=== PATIENT | female | born 1955 | race Caucasian/White ===

== ENCOUNTER 2018-08-12 08:15 | Day surgery (SDC) | payer OTHER ==
[~2018-08-12 08:15] MED LIST: CAPOTEN50 MG; CIPROFLOXACIN500 MG; DICYCLOMINE HCL20 MG; INTESTINEX1 CA1 PO; LOTREL 10/40 MG1 CAP; PERCOCET 10-3251 TAB PO; POLY119PG PO; PRILOSEC20 MG; SURFAK240 M1 PO; VERAPAMIL ER100 MG
== END 2018-08-12 14:49 | disposition home or self-care (01) ==
LOC: AMB-ENDOS 08:15
DX: D12.0 Benign neoplasm of cecum (principal)

== ENCOUNTER 2021-07-16 09:00 | Outpatient (CLI) | payer OTHER | END 2021-07-16 09:30 | disposition home or self-care (01) | LOC: PPH VACUNA 09:00 | PROVIDERS: ATTEND Emergency Medicine Pediatric Emergency Medicine | DX: Z23 Encounter for immunization (principal) ==

== ENCOUNTER 2023-02-25 07:30 | Outpatient (CLI) | payer OTHER | END 2023-02-25 07:37 | disposition home or self-care (01) | LOC: LAB 07:30 | DX: K80.80 Other cholelithiasis without obstruction (principal) ==

== ENCOUNTER 2023-03-21 15:48 | Emergency (ER) | payer OTHER ==
[~2023-03-21] VITALS: Ht 152.4 cm; Wt 71.7 kg
== END 2023-03-21 20:15 | disposition home or self-care (01) ==
LOC: ER 15:48 → EMR PED 15:51 → ER 15:51
DX: K29.70 Gastritis, unspecified, without bleeding (principal)
CPT/HCPCS: 36415; 96365; 99282; J3490

== ENCOUNTER → 2023-03-23 | Emergency (ER) | payer OTHER ==
[~2023-03-23] VITALS: Ht 152.4 cm; Wt 71.7 kg
== END | disposition designated cancer center or children's hospital (05) ==
LOC: ER 08:40
PROVIDERS: General Practice
DX: K43.6 Other and unspecified ventral hernia with obstruction, without gangrene (principal); Z20.822 Contact with and (suspected) exposure to COVID-19; Z88.6 Allergy status to analgesic agent
CPT/HCPCS: 36415; 74177; 96365; 99285; J7042; Q9965

== ENCOUNTER 2023-04-10 08:23 | Emergency (ER) | payer OTHER ==
[~2023-04-10] VITALS: Ht 152.4 cm; Wt 66.2 kg
== END 2023-04-10 15:19 | disposition designated cancer center or children's hospital (05) ==
LOC: ER 08:23
PROVIDERS: General Practice
DX: R11.10 Vomiting, unspecified (principal); I10 Essential (primary) hypertension

== ENCOUNTER 2023-09-11 12:42 | Outpatient (CLI) | payer OTHER | END 2023-09-11 12:43 | disposition home or self-care (01) | LOC: NUCLEAR 12:42 | PROVIDERS: ATTEND General Practice | DX: M81.0 Age-related osteoporosis without current pathological fracture (principal) ==

== ENCOUNTER 2023-11-06 08:01 | Outpatient (CLI) | payer OTHER | END 2023-11-06 08:11 | disposition home or self-care (01) | LOC: MAMO-SONO 08:01 | PROVIDERS: ATTEND General Practice | DX: N60.11 Diffuse cystic mastopathy of right breast (principal); N60.12 Diffuse cystic mastopathy of left breast; I12.9 Hypertensive chronic kidney disease with stage 1 through stage 4 chronic kidney disease, or unspecified chronic kidney disease; I10 Essential (primary) hypertension; E55.9 Vitamin D deficiency, unspecified; D72.819 Decreased white blood cell count, unspecified; R71.8 Other abnormality of red blood cells; M85.9 Disorder of bone density and structure, unspecified; M15.9 Polyosteoarthritis, unspecified; Z12.31 Encounter for screening mammogram for malignant neoplasm of breast ==

== ENCOUNTER 2024-02-29 08:59 | Outpatient (CLI) | payer OTHER | END 2024-02-29 09:10 | disposition home or self-care (01) | LOC: RAD 08:59 | PROVIDERS: ATTEND Orthopaedic Surgery Sports Medicine | DX: M17.11 Unilateral primary osteoarthritis, right knee (principal); R10.9 Unspecified abdominal pain; K42.9 Umbilical hernia without obstruction or gangrene ==